=== PATIENT | female | born 1975 | race Caucasian/White ===

== ENCOUNTER 2017-04-22 11:11 | Emergency (ER) | payer MEDICAID, OTHER ==
[~2017-04-22] VITALS: Ht 165.1 cm; Wt 64.0 kg
[~2017-04-22 11:11] MED LIST: PNV1TABL76 PO
[2017-04-22] MEDS ORDERED: ONDANSETRON 4MG ODT PO ONE (11:45)
[2017-04-22] MEDS ORDERED: IBUPROFEN 600MG TABLET PO ONE (11:45)
[2017-04-22 11:58] VITALS: BP 117/69
[2017-04-22 13:14] LABS: CLARITY URINE CLEAR (CLEAR); COLOR URINE YELLOW (YELLOW); GLUCOSE URINE NEGATIVE (NEGATIVE); KETONES URINE NEGATIVE (NEGATIVE); LEUKOCYTE ESTERASE URINE NEGATIVE (NEGATIVE); NITRITE URINE NEGATIVE (NEGATIVE); OCCULT BLOOD URINE NEGATIVE (NEGATIVE); PROTEIN URINE NEGATIVE (NEGATIVE); UROBILINOGEN URINE 0.2 E.U./dL (0.2-1.0)
== END 2017-04-22 13:13 | disposition home or self-care (01) ==
LOC: ER 11:40
DX: J06.9 Acute upper respiratory infection, unspecified (principal); Z87.440 Personal history of urinary (tract) infections; R11.10 Vomiting, unspecified
CPT/HCPCS: 81003; 87804; 99284; Q0162

== ENCOUNTER 2018-02-08 14:05 | Emergency (ER) | payer SELFPAY ==
[~2018-02-08] VITALS: Ht 162.6 cm; Wt 64.0 kg
[2018-02-08 15:38] LABS: BASOPHILS % 0.5 % (0.0-2.0); EOSINOPHILS % 0.5 % (0.0-5.0); HEMATOCRIT. 37.6 % (36.0-48.0); HEMOGLOBIN. 13.2 g/dL (12.0-16.0); LYMPHOCYTES % 18.9 % (20.0-50.0); MEAN CORPUSCULAR HEMOGLOBIN 31.5 pg (28.0-32.0); MEAN CORPUSCULAR VOLUME 89.4 fL (81.0-99.0); MEAN PLATELET VOLUME 7.9 fl (7.4-10.4); MONOCYTES % 7.2 % (2.0-8.0); NEUTROPHILS % 72.9 % (40.0-76.0); PLATELET 231 x1000/uL (130-400); RED BLOOD CELL COUNT 4.21 mill/uL (4.2-5.4); RED CELL DISTRIBUTION WIDTH 12.4 % (11.6-14.6)
[2018-02-08 15:44] LABS: CHLORIDE 102 mEq/L (98-107)
[2018-02-08 16:06] LABS: B-HCG QUANTITATIVE 94938 mIU/mL (<3)
[2018-02-08 17:34] LABS: CLARITY URINE CLEAR (CLEAR); COLOR URINE YELLOW (YELLOW); KETONES URINE NEGATIVE (NEGATIVE); LEUKOCYTE ESTERASE URINE NEGATIVE (NEGATIVE); NITRITE URINE NEGATIVE (NEGATIVE); OCCULT BLOOD URINE NEGATIVE (NEGATIVE); PROTEIN URINE NEGATIVE (NEGATIVE); SPECIFIC GRAVITY URINE 1.012 (1.005-1.030); UROBILINOGEN URINE 0.2 E.U./dL (0.2-1.0)
[2018-02-08 17:43] LABS: *AMPHETAMINES SCREEN URINE NEGATIVE (NEGATIVE); *BARBITURATES SCREEN URINE NEGATIVE (NEGATIVE); *BENZODIAZEPINES SCREEN URINE NEGATIVE (NEGATIVE)
[2018-02-08 17:44] LABS: *COCAINE SCREEN URINE NEGATIVE (NEGATIVE); CANNABINOID URINE SCREEN NEGATIVE (NEGATIVE); METHADONE URINE SCREEN NEGATIVE (NEGATIVE); OPIATES URINE SCREEN NEGATIVE (NEGATIVE); PHENCYCLIDINE URINE SCREEN NEGATIVE (NEGATIVE)
[2018-02-08 17:54] VITALS: BP 115/71
== END 2018-02-08 17:56 | disposition home or self-care (01) ==
LOC: ER 14:05
DX: O20.0 Threatened abortion (principal); R30.0 Dysuria; Z3A.09 9 weeks gestation of pregnancy; O09.521 Supervision of elderly multigravida, first trimester
CPT/HCPCS: 36415; 76801; 80048; 80305; 81003; 81025; 84702; 85025; 86850; 86900; 99285

== ENCOUNTER 2023-06-16 13:10 | Emergency (ER) | payer MEDICAID, OTHER ==
[~2023-06-16] VITALS: Ht 167.6 cm; Wt 91.0 kg
[2023-06-16 13:28] VITALS: O2SAT 95
[2023-06-16] MEDS ORDERED: ONDANSETRON 4MG ODT PO ONE (14:30)
[2023-06-16 15:12] LABS: BASOPHILS % 0.4 % (0.0-2.0); EOSINOPHILS % 0.6 % (0.0-5.0); HEMATOCRIT. 43.3 % (36.0-48.0); HEMOGLOBIN. 14.8 g/dL (12.0-16.0); LYMPHOCYTES % 32.9 % (20.0-50.0); MEAN CORPUSCULAR HEMOGLOBIN 30.8 pg (28.0-32.0); MEAN CORPUSCULAR VOLUME 90.4 fL (81.0-99.0); MONOCYTES % 7.7 % (2.0-8.0); NEUTROPHILS % 58.4 % (40.0-76.0); RED BLOOD CELL COUNT 4.79 mill/uL (4.2-5.4); RED CELL DISTRIBUTION WIDTH 12.2 % (11.6-14.6); WHITE BLOOD COUNT 8.1 x1000/uL (4.5-11.0)
[2023-06-16 15:21] LABS: HCG SCREEN NEGATIVE
[2023-06-16 15:27] LABS: ALANINE AMINOTRANSFERASE 28 IU/L (10-49); ALBUMIN 4.5 g/dL (3.2-4.8); ASPARTATE AMINOTRANSFERASE 21 IU/L (<34); BILIRUBIN TOTAL 0.3 mg/dL (0.1-1.0); CALCIUM 9.2 mg/dL (8.7-10.4); CARBON DIOXIDE 30 mEq/L (21-32); CHLORIDE 105 mEq/L (98-107); CREATININE 0.7 mg/dL (0.6-1.0); GLUCOSE 126 mg/dL (70-105); POTASSIUM 3.7 mEq/L (3.5-5.1); PROTEIN TOTAL 7.8 g/dL (6.0-8.3); SODIUM 140 mEq/L (136-145); UREA NITROGEN BLOOD 11 mg/dL (9-23)
[2023-06-16 15:29] LABS: TROPONIN I HIGH SENSITIVITY < 4 ng/L (3.0-34)
[2023-06-16 15:39] LABS: DIFFERENTIAL COMMENT 1
[2023-06-16 16:01] LABS: MEAN PLATELET VOLUME 8.7 fl (7.4-10.4); PLATELET 233 x1000/uL (130-400)
[2023-06-16] MEDS ORDERED: ONDA4TAB11 PO (16:47)
[2023-06-16 16:54] VITALS: BP 129/72; PULSE 86; RESP 18; TEMP 98.6
== END 2023-06-16 16:59 | disposition home or self-care (01) ==
LOC: ER 13:12
DX: R11.2 Nausea with vomiting, unspecified (principal); I49.9 Cardiac arrhythmia, unspecified
CPT/HCPCS: 36415; 80053; 84484; 84703; 85025; 93005; 99284

== ENCOUNTER 2023-07-28 12:18 | Emergency (ER) | payer MEDICAID ==
[~2023-07-28] VITALS: Ht 160 cm; Wt 70.0 kg
[~2023-07-28 12:18] MED LIST changes: +ONDA4TAB11 PO
[2023-07-28 12:27] VITALS: BP 148/83; PULSE 79; RESP 16; TEMP 97.9; O2SAT 98
[2023-07-28 13:04] LABS: BASOPHILS % 0.3 % (0.0-2.0); EOSINOPHILS % 0.5 % (0.0-5.0); HEMATOCRIT. 40.8 % (36.0-48.0); HEMOGLOBIN. 14.3 g/dL (12.0-16.0); LYMPHOCYTES % 26.1 % (20.0-50.0); MEAN CORPUSCULAR HEMOGLOBIN 30.9 pg (28.0-32.0); MEAN CORPUSCULAR VOLUME 88.3 fL (81.0-99.0); MEAN PLATELET VOLUME 8.3 fl (7.4-10.4); MONOCYTES % 5.8 % (2.0-8.0); NEUTROPHILS % 67.3 % (40.0-76.0); PLATELET 249 x1000/uL (130-400); RED BLOOD CELL COUNT 4.62 mill/uL (4.2-5.4); WHITE BLOOD COUNT 9.8 x1000/uL (4.5-11.0)
[2023-07-28 13:13] LABS: HCG SCREEN NEGATIVE
[2023-07-28 13:17] LABS: ALANINE AMINOTRANSFERASE 37 IU/L (10-49); ALBUMIN 5.2 g/dL (3.2-4.8); ASPARTATE AMINOTRANSFERASE 26 IU/L (<34); BILIRUBIN TOTAL 0.5 mg/dL (0.1-1.0); CALCIUM 10.5 mg/dL (8.7-10.4); CARBON DIOXIDE 28 mEq/L (21-32); CHLORIDE 98 mEq/L (98-107); CREATININE 0.6 mg/dL (0.6-1.0); GLUCOSE 118 mg/dL (70-105); POTASSIUM 4.2 mEq/L (3.5-5.1); PROTEIN TOTAL 8.1 g/dL (6.0-8.3); SODIUM 136 mEq/L (136-145); UREA NITROGEN BLOOD 12 mg/dL (9-23)
[2023-07-28 13:21] LABS: TROPONIN I HIGH SENSITIVITY < 4 ng/L (3.0-34)
[2023-07-28 14:49] LABS: CLARITY URINE CLEAR (CLEAR); COLOR URINE YELLOW (YELLOW); GLUCOSE URINE NEGATIVE (NEGATIVE); KETONES URINE NEGATIVE (NEGATIVE); LEUKOCYTE ESTERASE URINE NEGATIVE (NEGATIVE); NITRITE URINE NEGATIVE (NEGATIVE); OCCULT BLOOD URINE NEGATIVE (NEGATIVE); PROTEIN URINE NEGATIVE (NEGATIVE); SPECIFIC GRAVITY URINE 1.014 (1.005-1.030); UROBILINOGEN URINE 0.2 E.U./dL (0.2-1.0)
[2023-07-28] MEDS: ONDANSETRON 4MG ODT PO ONE (17:35)
== END 2023-07-28 16:00 | disposition home or self-care (01) ==
LOC: ER 12:18
DX: R42 Dizziness and giddiness (principal)
CPT/HCPCS: 36415; 71045; 80053; 81003; 81025; 84484; 84703; 85025; 93005; 99285